=== PATIENT | female | born 1975 | race Two or more races ===

== ENCOUNTER 2018-12-03 09:10 | Emergency (ER) | payer MEDICAID, OTHER ==
[~2018-12-03] VITALS: Ht 165.1 cm; Wt 79.4 kg
[2018-12-03 09:26] VITALS: BP 148/99
[2018-12-03] MEDS ORDERED: MORPHINE SULFATE 4 MG/ML SYR/VIAL IV ONE (09:45)
[2018-12-03] MEDS ORDERED: SODIUM CHLORIDE 0.9% 1,000 ML IV ONE (09:45)
[2018-12-03] MEDS ORDERED: ONDANSETRON HCL 4 MG/2 ML VIAL IV ONE (09:45)
[2018-12-03 09:48] LABS: Basophils # (auto) 0.1 uL; Basophils % (auto) 1.4 % (0.0-2.0); Eosinophils # (auto) 0.2 uL; Eosinophils % (auto) 2.4 % (0.0-7.0); Hematocrit 41.7 % (36.0-46.0); Hemoglobin 14.4 g/dL (12.2-16.2); Lymphocytes % (auto) 26.1 % (10.0-50.0); Mean Corpuscular Hemoglobin 32.8 pg (28.0-32.0); Mean Corpuscular Hgb Conc. 34.6 g/dL (32.0-36.0); Mean Corpuscular Volume 94.9 fL (80.0-100.0); Monocytes # (auto) 0.5 uL; Monocytes % (auto) 7.2 % (0.0-12.0); Neutrophils # (auto) 4.8 uL; Neutrophils % (auto) 62.9 % (37.0-80.0); Platelet Count (auto) 216 10^3/uL (140-450); Red Cell Distribution Width 13.5 % (11.8-14.3); White Blood Cell 7.6 10^3/uL (4.4-10.8)
[2018-12-03 10:03] LABS: BUN/Creatinine Ratio 20.3
[2018-12-03 10:06] LABS: Bilirubin, Total 0.5 mg/dL (0.2-1.0); Total Protein 5.8 g/dL (6.4-8.2)
[2018-12-03] MEDS ORDERED: POTASSIUM CHL 20 Meq TABLET PO ONE (10:45)
== END 2018-12-03 11:39 | disposition home or self-care (01) ==
LOC: EDUNIT# 09:10 → EDBD 09:10 → ER 09:11
DX: D25.9 Leiomyoma of uterus, unspecified (principal); N94.10 Unspecified dyspareunia; J45.909 Unspecified asthma, uncomplicated; F17.210 Nicotine dependence, cigarettes, uncomplicated; I10 Essential (primary) hypertension; Z98.51 Tubal ligation status; Z87.442 Personal history of urinary calculi
CPT/HCPCS: 36415; 74176; 80053; 83690; 85025; 94761; 96374; 96375; 99284; J2270; J2405; J7030

== ENCOUNTER 2023-03-28 05:42 | Inpatient (IN) | payer SELFPAY ==
[~2023-03-28] VITALS: Ht 162.6 cm; Wt 77.2 kg
[2023-03-28] MEDS ORDERED: hydrALAZINE HCL 20 MG/ML VL IV ONE (06:00)
[2023-03-28 06:17] LABS: Basophils # (auto) 0.1 10 ^3/uL (0-0.2); Eosinophils # (auto) 0.2 10 ^3/uL (0-0.8); Eosinophils % (auto) 3.7 % (0.0-7.0); Hematocrit 41.2 % (36.0-46.0); Hemoglobin 13.9 g/dL (12.2-16.2); Lymphocytes # (auto) 1.9 10 ^3/uL (0.4-5.4); Lymphocytes % (auto) 34.8 % (10.0-50.0); Mean Corpuscular Hgb Conc. 33.7 g/dL (32.0-36.0); Monocytes # (auto) 0.3 10 ^3/uL (0-1.3); Monocytes % (auto) 5.5 % (0.0-12.0); Red Blood Cells 4.48 10^6/uL (4.0-5.20); Red Cell Distribution Width 13.8 % (11.8-14.3); White Blood Cell 5.5 10^3/uL (4.4-10.8)
[2023-03-28 06:20] VITALS: PULSE 84; RESP 18; O2SAT 97
[2023-03-28 06:25] LABS: Alanine Aminotransferase 10 U/L (7-40); Albumin 4.2 g/dL (3.2-4.8); Alkaline Phosphatase 54 U/L (46-116); Anion Gap 7 (5-15); Aspartate Aminotransferase < 8 U/L (13-40); BUN/Creatinine Ratio 11.9 (10.0-20.0); Bilirubin, Total 0.8 mg/dL (0.2-1.0); Blood Urea Nitrogen 8 mg/dL (9-23); Calcium 8.9 mg/dL (8.5-10.1); Carbon Dioxide 26 mmol/L (20-30); Chloride 106 mmol/L (98-107); Glucose 124 mg/dL (74-106); Potassium 3.7 mmol/L (3.5-5.1); Sodium 139 mmol/L (136-145); Total Protein 6.9 g/dL (5.7-8.2)
[2023-03-28] MEDS ORDERED: PROMETHAZINE HCL 25 MG/ML 1ML IV ONE (06:45)
[2023-03-28] MEDS ORDERED: MORPHINE SULFATE 4 MG/ML SYR/VIAL IV ONE (06:45)
[2023-03-28 07:23] VITALS: RESP 18; O2SAT 97
[2023-03-28 07:51] LABS: Urine Bacteria FEW /hpf (None Seen); Urine Blood Negative /uL (Negative); Urine Clarity Clear (Clear); Urine Color Colorless (Yellow); Urine Protein, UAD Negative (Negative); Urine Specific Gravity 1.007 (1.001-1.035); Urine Urobilinogen Normal (Negative); Urine WBC 1 /hpf (0 - 5)
[2023-03-28] MEDS ORDERED: NITROGLYCERIN 0.4 MG SL TAB SL PRN (10:00)
[2023-03-28] MEDS ORDERED: MORPHINE SULFATE INJ 2 MG/ml SYRG IV PRN (10:00)
[2023-03-28] MEDS ORDERED: HYDROcodone-ACET 5/325MG TAB PO PRN (10:00)
[2023-03-28] MEDS ORDERED: DOCUSATE SOD 100 MG CAP PO PRN (10:00)
[2023-03-28] MEDS ORDERED: LORazepam 0.5 MG TAB PO PRN (10:00)
[2023-03-28] MEDS ORDERED: ONDANSETRON HCL 4 MG/2 ML VIAL IV PRN (10:00)
[2023-03-28] MEDS ORDERED: ACETAMINOPHEN 325 MG TAB PO PRN (10:00)
[2023-03-28] MEDS: SODIUM CHLORIDE 0.9% 1,000 ML IV SCH (10:10)
[2023-03-28] MEDS ORDERED: PROMETHAZINE HCL 25 MG/ML 1ML IV PRN ×2 (10:45→19:45)
[2023-03-28] MEDS ORDERED: hydrALAZINE HCL 20 MG/ML VL IV PRN (14:00)
[2023-03-28] MEDS: MORPHINE SULFATE INJ 2 MG/ml SYRG IV PRN (14:50)
[2023-03-28 19:30] VITALS: PULSE 88; RESP 16; O2SAT 94
[2023-03-28 20:33] LABS: INR 0.98 (0.9-1.15); Prothrombin Time 10.3 sec (9.3-11.8)
[2023-03-28] MEDS ORDERED: LORazepam 2MG/ML-1ML VIAL IV PRN (20:45)
[2023-03-28 22:08] VITALS: BP 148/91; PULSE 67; RESP 18; TEMP 98.2; O2SAT 98
[2023-03-28] MEDS ORDERED: DexAMETHasone SOD PHOS 10MG/1ML VIAL INJ ONE (22:45)
[2023-03-28] MEDS: DexAMETHasone INJECTION 10 MG in D5W 5% 50 ML IV SCH (22:50)
[2023-03-28] MEDS: METOCLOPRAMIDE HCL 10 MG TAB PO SCH (22:50)
[2023-03-28] MEDS ORDERED: ATOR10TA52 PO (22:56)
[2023-03-28] MEDS ORDERED: LISI40TA16 PO (22:56)
[2023-03-28 23:16] VITALS: BP 148/91; PULSE 67; RESP 16; TEMP 98; O2SAT 98
[2023-03-29 08:00] VITALS: BP 139/84; PULSE 103; RESP 20; TEMP 98.4; O2SAT 93
[2023-03-29 11:20] LABS: Alanine Aminotransferase 12 U/L (7-40); Albumin 4.2 g/dL (3.2-4.8); Alkaline Phosphatase 57 U/L (46-116); Anion Gap 10 (5-15); Aspartate Aminotransferase 9 U/L (13-40); BUN/Creatinine Ratio 15.1 (10.0-20.0); Bilirubin, Total 0.5 mg/dL (0.2-1.0); Blood Urea Nitrogen 11 mg/dL (9-23); Calcium 9.2 mg/dL (8.5-10.1); Carbon Dioxide 23 mmol/L (20-30); Chloride 107 mmol/L (98-107); Cholesterol 192 mg/dL (< 200); Glucose 146 mg/dL (74-106); HDL Cholesterol 52 mg/dL (40-59); LDL Cholesterol 132 mg/dL (< 100); Potassium 4.2 mmol/L (3.5-5.1); Sodium 140 mmol/L (136-145); Triglycerides 101 mg/dL (< 150)
[2023-03-29 11:27] LABS: Basophils # (auto) 0 10 ^3/uL (0-0.2); Basophils % (auto) 0.3 % (0.0-2.0); Eosinophils # (auto) 0 10 ^3/uL (0-0.8); Eosinophils % (auto) 0.1 % (0.0-7.0); Hematocrit 42.5 % (36.0-46.0); Lymphocytes # (auto) 0.5 10 ^3/uL (0.4-5.4); Lymphocytes % (auto) 4.9 % (10.0-50.0); Mean Corpuscular Volume 91.1 fL (80.0-100.0); Monocytes # (auto) 0.1 10 ^3/uL (0-1.3); Neutrophils # (auto) 10.3 10 ^3/uL (1.6-8.6); Neutrophils % (auto) 93.7 % (37.0-80.0); Red Blood Cells 4.67 10^6/uL (4.0-5.20); Red Cell Distribution Width 13.6 % (11.8-14.3)
[2023-03-29 12:00] VITALS: BP 122/76; PULSE 101; RESP 20; TEMP 98.4; O2SAT 93
[2023-03-29] MEDS: METOCLOPRAMIDE HCL 10 MG TAB PO SCH ×2 (13:00→22:07)
[2023-03-29] MEDS: MORPHINE SULFATE INJ 2 MG/ml SYRG IV PRN ×2 (15:59→20:56)
[2023-03-29 16:00] VITALS: BP 130/70; PULSE 73; RESP 20; TEMP 97.8; O2SAT 97
[2023-03-29] MEDS: SODIUM CHLORIDE 0.9% 1,000 ML IV SCH ×2 (18:23→19:20)
[2023-03-29 20:00] VITALS: BP 129/79; PULSE 102; PULSE 86; RESP 18; TEMP 98.6; O2SAT 97
[2023-03-29 20:28] LABS: COVID19 ANTIGEN SOFIA FIA NEGATIVE (NEGATIVE)
[2023-03-29 22:00] VITALS: BP 129/98; PULSE 86; RESP 18; TEMP 98.6; O2SAT 97
[2023-03-29] MEDS: DexAMETHasone INJECTION 10 MG in D5W 5% 50 ML IV SCH (22:00)
[2023-03-30] MEDS: MORPHINE SULFATE INJ 2 MG/ml SYRG IV PRN (04:09)
[2023-03-30 05:00] VITALS: BP 135/76; PULSE 63; RESP 18; TEMP 98.3; O2SAT 95
[2023-03-30] MEDS: METOCLOPRAMIDE HCL 10 MG TAB PO SCH ×2 (05:58→14:13)
[2023-03-30 06:09] LABS: Alkaline Phosphatase 51 U/L (46-116); Anion Gap 8 (5-15); Blood Urea Nitrogen 13 mg/dL (9-23); Calcium 8.9 mg/dL (8.7-10.4); Carbon Dioxide 26 mmol/L (20-30); Chloride 106 mmol/L (98-107); Glucose 102 mg/dL (74-106); Potassium 3.7 mmol/L (3.5-5.1); Sodium 140 mmol/L (136-145)
[2023-03-30 06:11] LABS: Albumin 3.9 g/dL (3.2-4.8); Aspartate Aminotransferase 11 U/L (13-40); Bilirubin, Total 0.6 mg/dL (0.2-1.0); Total Protein 6.3 g/dL (5.7-8.2)
[2023-03-30 06:19] LABS: Basophils # (auto) 0.1 10 ^3/uL (0-0.2); Basophils % (auto) 0.5 % (0.0-2.0); Eosinophils # (auto) 0.1 10 ^3/uL (0-0.8); Eosinophils % (auto) 0.5 % (0.0-7.0); Hemoglobin 12.3 g/dL (12.2-16.2); Lymphocytes # (auto) 3.1 10 ^3/uL (0.4-5.4); Lymphocytes % (auto) 32.7 % (10.0-50.0); Mean Corpuscular Hemoglobin 30.2 pg (28.0-32.0); Mean Corpuscular Hgb Conc. 33.2 g/dL (32.0-36.0); Mean Corpuscular Volume 90.9 fL (80.0-100.0); Monocytes # (auto) 0.7 10 ^3/uL (0-1.3); Monocytes % (auto) 7.2 % (0.0-12.0); Neutrophils # (auto) 5.7 10 ^3/uL (1.6-8.6); Neutrophils % (auto) 59.1 % (37.0-80.0); Red Blood Cells 4.07 10^6/uL (4.0-5.20); Red Cell Distribution Width 13.5 % (11.8-14.3); White Blood Cell 9.6 10^3/uL (4.4-10.8)
[2023-03-30 06:33] LABS: Alanine Aminotransferase < 9 U/L (7-40)
[2023-03-30 08:00] VITALS: BP 125/75; PULSE 66; PULSE 69; RESP 20; TEMP 98.3; O2SAT 95
[2023-03-30] MEDS ORDERED: LISINOPRIL 20 MG TAB PO SCH (10:00)
[2023-03-30 12:00] VITALS: BP 130/84; PULSE 62; RESP 20; TEMP 98.3; O2SAT 95
[2023-03-30] MEDS: SODIUM CHLORIDE 0.9% 1,000 ML IV SCH (12:59)
[2023-03-30 14:39] VITALS: BP 125/75; PULSE 130; RESP 84; TEMP 98.3; O2SAT 95
== END 2023-03-30 15:10 | disposition home or self-care (01) | DRG 103 ==
LOC: ER 05:42 → TELE 09:57 → TELE-EAST 21:43
PROVIDERS: ADMIT Internal Medicine Geriatric Medicine; ATTEND Internal Medicine Geriatric Medicine
DX: G43.909 Migraine, unspecified, not intractable, without status migrainosus (principal); I67.4 Hypertensive encephalopathy; I10 Essential (primary) hypertension; F17.210 Nicotine dependence, cigarettes, uncomplicated; J45.909 Unspecified asthma, uncomplicated; Z20.822 Contact with and (suspected) exposure to COVID-19; Z82.49 Family history of ischemic heart disease and other diseases of the circulatory system; Z87.442 Personal history of urinary calculi; Z98.51 Tubal ligation status
CPT/HCPCS: 36415; 70450; 70551; 71045; 80053; 80061; 81001; 82306; 82607; 83036; 83735; 84443; 84484; 85025; 85610; 85730; 87426; 93005; 93306; 96361; 96374; 96375; 96376; 99291; G0378; J1100; J7060